=== PATIENT | male | born 1975 | race Native Hawaiian/Other Pacific Islander ===

== ENCOUNTER 2017-03-04 07:34 | Outpatient (CLI) | payer BC | END 2017-03-04 19:05 | disposition home or self-care (01) | LOC: MRI 07:34 | DX: N28.89 Other specified disorders of kidney and ureter (principal) | CPT/HCPCS: A9576 ==

== ENCOUNTER 2017-11-22 13:26 | Outpatient (CLI) | payer OTHER | END 2017-11-22 21:13 | disposition home or self-care (01) | LOC: RAD 13:26 | DX: Z85.528 Personal history of other malignant neoplasm of kidney (principal) ==